=== PATIENT | female | born 1960 | race Caucasian/White ===

== ENCOUNTER 2016-12-06 07:27 | Emergency (ER) | payer BC, OTHER ==
[2016-12-06 07:37] VITALS: BP 113/77; PULSE 84; RESP 17; TEMP 97.9; O2SAT 99
--- NOTE | 2016-12-06 07:48 | EDPHY ---
H & P Time Seen by Provider: 12/06/16 07:48 HPI/ROS: Chief complaint. Eye injury HPI. Patient is a 56-year-old female was caring multiple things that she was going into work. She tripped and fell and struck the left side of her face. She was wearing glasses which broke. She sustained laceration to the left corner of the periorbital area. No visual change. No pain in the eye. No headache or neck pain or other injuries. Current on tetanus immunization ROS Constitutional. no fever/chills, no weakness Eyes. no problems with vision ENT. no sore throat, no nasal drainage Cardiovascular. no chest pain Respiratory. no shortness of breath, no cough Abdominal. no abdominal pain, no nausea/vomiting, no diarrhea . no problems urinating MS. no calf pain/swelling, no neck/back pain, no joint pain Skin. Laceration to Skin adjacent to left eye Lymph. no swollen glands Neuro. no headache, no dizziness, no difficulty walking or with speech Past Medical/Surgical History: Healthy Social History: , nonsmoker, no alcohol Smoking Status: Never smoked Physical Exam: General Appearance: Alert pleasant well-developed female mild distress vital signs stable Eyes: Pupils equal and round no pallor or injection. ENT, Mouth: Mucous membranes are moist. Respiratory: There are no retractions, lungs are clear to auscultation. Cardiovascular: Regular rate and rhythm. Gastrointestinal: Abdomen is soft and nontender, no masses, bowel sounds normal. Neurological: Awake and alert, sensory and motor exams grossly normal. Skin: 1 cm laceration that is somewhat stellate to the skin just adjacent to the lateral aspect of the left eye. There appears to be small yellowish foreign body in the laceration Musculoskeletal: Neck is supple nontender. Extremities symmetrical, full range of motion. Psychiatric: Patient is oriented X 3, there is no agitation. Constitutional: Initial Vital Signs Temperature (C) 36.6 C 12/06/16 07:34 Heart Rate 84 12/06/16 07:34 Respiratory Rate 17 12/06/16 07:34 Blood Pressure 113/77 12/06/16 07:34 O2 Sat (%) 99 12/06/16 07:34 O2 Delivery Mode Room Air Allergies/Adverse Reactions: No Known Allergies Allergy (Unverified 12/06/16 07:29) Home Medications: Medication Instructions Recorded NK [No Known Home Meds] 12/06/16 Medical Decision Making Procedures: Procedure: Laceration repair. Verbal consent was obtained from the patient. The 1 cm laceration on the left face was anesthetized in the usual fashion. The wound was irrigated, draped and explored to its base with a gloved finger. There were no deep structures involved. No tendon injury was identified. The wound was repaired with three 6 -0 . The wound repair was simple. The procedure was performed by myself. ED Course/Re-evaluation: The patient remained stable on re-evaluation. She and I discussed treatment plan including criteria for return importance of follow-up and further evaluation. She expresses understanding and agreement Differential Diagnosis: I considered globe trauma, periorbital bone fractures, retained foreign body Departure - Departure Disposition: Home, Routine, Self-Care Clinical Impression: Facial laceration Condition: Good Instructions: Care For Your Stitches (ED) Additional Instructions: Ice off and on to the left face area today to minimize swelling. Tylenol or ibuprofen for discomfort. You may shower and wash her hair with stitches in. Return for signs of infection. Stitches out 5 days Referrals: Scooby Jaimes DO [Doctor of Osteopathy] - As per Instructions
== END 2016-12-06 08:34 | disposition home or self-care (01) ==
PROC: 0HQ1XZZ Repair Face Skin, External Approach (ICD-10-PCS; principal; 2016-12-06)
DX: S01.81XA Laceration without foreign body of other part of head, initial encounter (principal); W01.198A Fall on same level from slipping, tripping and stumbling with subsequent striking against other object, initial encounter

== ENCOUNTER → 2017-08-18 | Outpatient (CLI) | payer OTHER | LOC: BRMIMAGING 10:47 | DX: Z13.820 Encounter for screening for osteoporosis (principal); M81.0 Age-related osteoporosis without current pathological fracture; E83.52 Hypercalcemia ==

== ENCOUNTER → 2018-08-17 | Outpatient (CLI) | payer OTHER | LOC: BRMIMAGING 10:45 | PROVIDERS: ATTEND Internal Medicine | DX: Z13.820 Encounter for screening for osteoporosis (principal); M85.89 Other specified disorders of bone density and structure, multiple sites; E05.90 Thyrotoxicosis, unspecified without thyrotoxic crisis or storm; Z78.0 Asymptomatic menopausal state ==